=== PATIENT | female | born 1955 | race Caucasian/White ===

== ENCOUNTER 2017-11-05 19:45 | Inpatient (IN) | payer BC ==
[~2017-11-05] VITALS: Ht 160 cm; Wt 102.3 kg
[2017-11-05 20:43] LABS: HEMATOCRIT 37.7 % (36.0-46.0); HEMOGLOBIN 12.2 G/DL (11.9-15.5); MCH 29.8 PG (29.0-34.0); MCHC 32.4 G/DL (30.0-36.0); MCV 92.2 FL (83-99); PLATELET COUNT 265 K/uL (156-360); RBC DIS.WIDTH-SD 50.2 % (39-53); RED BLOOD COUNT 4.09 M/uL (3.80-5.20); WHITE BLOOD COUNT 10.4 K/uL (4.1-10.2)
[2017-11-05 20:45] LABS: APPEARANCE CLOUDY ((CLEAR)); BILIRUBIN NEGATIVE; BLOOD LARGE; COLOR BROWN ((YELLOW)); GLUCOSE (STRIP) 1000; KETONES NEGATIVE; LEUKOCYTES NEGATIVE; NITRITE NEGATIVE; PH, URINE 6.5 (5-8); PROTEIN (STRIP) 100; SPECIFIC GRAVITY 1.015 (1.000-1.030); UROBILINOGEN 0.2 MG/DL (0.2-1.0)
[2017-11-05 20:49] LABS: RED BLOOD CELLS TNTC /HPF (0-5); UCUL ADDED? YES
[2017-11-05 20:56] LABS: ALBUMIN 4.1 g/dL (3.2-4.8); CHLORIDE 103 mEq/L (99-109); POTASSIUM 4.6 mEq/L (3.7-5.4); SODIUM 140 mEq/L (136-147)
[2017-11-05 20:59] LABS: GLUCOSE 181 mg/dL (70-99); TOTAL PROTEIN 7.1 g/dL (6.4-8.3)
[2017-11-05 21:01] LABS: TOTAL BILIRUBIN 0.7 mg/dL (0.0-1.0)
[2017-11-05 21:02] LABS: ALKALINE PHOSPHATASE 92 IU/L (3-129); CREATININE 0.9 mg/dL (0.6-1.3); GFR ESTIMATE (CALCULATED) > 59 mL/min/
[2017-11-05 21:03] LABS: UREA NITROGEN (BUN) 13 mg/dL (9-23)
[2017-11-05 21:04] LABS: AST (GOT) 19 IU/L (2-34)
[2017-11-05 21:05] LABS: ALT (GPT) 19 IU/L (3-49)
[2017-11-05 22:55] LABS: LIPASE 10 U/L (1.0-51.0)
[2017-11-06] MEDS ORDERED: METOPROLOL SUCC25 MG PO (01:26)
[2017-11-06] MEDS ORDERED: ACTOS30 MG PO (01:26)
[2017-11-06] MEDS ORDERED: PERCOCET 7.51 TABLET PO (01:27)
[2017-11-06] MEDS ORDERED: CYMBALTA60 MG PO (01:28)
[2017-11-06] MEDS ORDERED: GABAPENTIN100 MG PO (01:28)
[2017-11-06] MEDS ORDERED: JARDIANCE25 MG PO (01:28)
[2017-11-06] MEDS ORDERED: CRESTOR10 MG PO (01:28)
[2017-11-06] MEDS ORDERED: MELOXICAM15 MG PO (01:28)
[2017-11-06] MEDS ORDERED: METFORMIN HCL1000 MG PO (01:28)
[2017-11-06] MEDS ORDERED: COZAAR25 MG PO (01:28)
[2017-11-06] MEDS ORDERED: [UNRECOGNIZED DRUG - CODE] PO (01:29)
[2017-11-06] MEDS ORDERED: ONGLYZA5 MG PO (01:29)
[2017-11-06] MEDS ORDERED: CYANOCOBALAM1000 MCG PO (01:29)
[2017-11-06] MEDS ORDERED: ADULT ASPIRIN R81 MG PO (01:29)
[2017-11-06] MEDS ORDERED: BONE RESTORE PO (01:30)
[2017-11-06] MEDS ORDERED: [UNRECOGNIZED DRUG - OTHER] PO (01:30)
[2017-11-06] MEDS ORDERED: MAGNESIUM OXID500 MG PO (01:30)
[2017-11-06] MEDS ORDERED: ANTIBIOTIC PO (01:32)
[2017-11-06 03:15] VITALS: BP 161/67
[2017-11-06 08:10] VITALS: BP 138/61
[2017-11-06 10:46] LABS: HEMATOCRIT 36.3 % (36.0-46.0); HEMOGLOBIN 11.2 G/DL (11.9-15.5); MCV 92.4 FL (83-99)
[2017-11-06 12:33] VITALS: BP 133/66
[2017-11-06 16:14] VITALS: BP 176/77
[2017-11-06 20:24] VITALS: BP 139/65
[2017-11-06 22:41] VITALS: BP 105/57
[2017-11-07] VITALS (13 sets, daily range): BP systolic 83–145; BP diastolic 49–89
[2017-11-07 05:36] LABS: HEMATOCRIT 33.9 % (36.0-46.0); HEMOGLOBIN 10.7 G/DL (11.9-15.5); MCH 29.3 PG (29.0-34.0); MCHC 31.6 G/DL (30.0-36.0); MCV 92.9 FL (83-99); NRBC (%) 0.2 /100 WBC (0-0); PLATELET COUNT 187 K/uL (156-360); RBC DIS.WIDTH-CV 15.3 % (11.8-14.6); RBC DIS.WIDTH-SD 52.4 % (39-53); RED BLOOD COUNT 3.65 M/uL (3.80-5.20); WHITE BLOOD COUNT 13.8 K/uL (4.1-10.2)
[2017-11-07 06:16] LABS: CREATININE 1.4 MG/DL (0.6-1.3)
[2017-11-07 16:58] LABS: BICARBONATE 17.7 mEq/L (22-26); CARBOXY HGB 1.8 % (0-5); METHEMOGLOBIN 1.4 % (0-1.5); PCO2 36 mm Hg (35-45); PO2 58 mm Hg (80-100)
[2017-11-07 16:59] LABS: COMMENTS - BLOOD GASES A+C+; MODE CPAP; SITE RR
[2017-11-07 18:50] LABS: ALBUMIN 2.8 G/DL (3.2-4.8); ALKALINE PHOSPHATASE 166 IU/L (3-129); ALT (GPT) 33 IU/L (3-49); AST (GOT) 71 IU/L (2-34); DIRECT BILIRUBIN 0.4 mg/dL (0.0-0.3); TOTAL PROTEIN 4.9 G/DL (6.4-8.3)
[2017-11-07 18:57] LABS: CHLORIDE 109 MEQ/L (99-109); CREATININE 1.6 MG/DL (0.6-1.3); GFR ESTIMATE (CALCULATED) 35 mL/min/; GLUCOSE 134 mg/dL (70-99); POTASSIUM 3.8 MEQ/L (3.7-5.4); SODIUM 138 MEQ/L (136-147)
[2017-11-07 19:10] LABS: UREA NITROGEN (BUN) 23 mg/dL (9-23)
[2017-11-08] VITALS (23 sets, daily range): BP systolic 76–151; BP diastolic 54–92
[2017-11-08 04:41] LABS: HEMATOCRIT 31.7 % (36.0-46.0); HEMOGLOBIN 9.9 G/DL (11.9-15.5); MCH 29.2 PG (29.0-34.0); MCHC 31.2 G/DL (30.0-36.0); MCV 93.5 FL (83-99); RBC DIS.WIDTH-CV 15.4 % (11.8-14.6); RBC DIS.WIDTH-SD 53.3 % (39-53); RED BLOOD COUNT 3.39 M/uL (3.80-5.20); WHITE BLOOD COUNT 13.5 K/uL (4.1-10.2)
[2017-11-08 04:43] LABS: INTER. NORMALIZED RATIO 1.2
[2017-11-08 04:46] LABS: PTT 28.1 SEC (25-37)
[2017-11-08 05:02] LABS: ALBUMIN 2.9 G/DL (3.2-4.8); CHLORIDE 111 MEQ/L (99-109); CREATININE 1.5 MG/DL (0.6-1.3); GFR ESTIMATE (CALCULATED) 37 mL/min/; GLUCOSE 148 mg/dL (70-99); SODIUM 139 MEQ/L (136-147); UREA NITROGEN (BUN) 24 mg/dL (9-23)
[2017-11-08 05:03] LABS: ALKALINE PHOSPHATASE 99 IU/L (3-129); ALT (GPT) 66 IU/L (3-49); AST (GOT) 118 IU/L (2-34); POTASSIUM 4.7 MEQ/L (3.7-5.4)
[2017-11-08 05:15] LABS: ABS NEUTROPHIL COUNT 12.2; ATYPICAL LYMPHOCYTE 0.9 %; BAND NEUTROPHILS 10.5 % (0-8.0); BURR CELLS 1+; EOSINOPHIL ABS CT 0; LYMPHOCYTES 6.2 % (15.0-45.0); MONOCYTES 2.6 % (0-9.0); OVALOCYTES 1+; PLAT.SUFFICIENCY DECREASED; PLATELET COUNT 127 K/uL (156-360); SEG.NEUTROPHILS 79.8 % (46.0-76.0)
[2017-11-09] VITALS (24 sets, daily range): BP systolic 139–172; BP diastolic 75–105
[2017-11-09 15:12] LABS: CHLORIDE 105 MEQ/L (99-109); GLUCOSE 127 mg/dL (70-99); POTASSIUM 4.2 MEQ/L (3.7-5.4); SODIUM 135 MEQ/L (136-147); UREA NITROGEN (BUN) 17 mg/dL (9-23)
[2017-11-09 15:16] LABS: GFR ESTIMATE (CALCULATED) > 59 mL/min/
[2017-11-10] VITALS (20 sets, daily range): BP systolic 115–178; BP diastolic 62–127
[2017-11-10 06:06] LABS: CHLORIDE 105 MEQ/L (99-109); CREATININE 0.6 MG/DL (0.6-1.3); GFR ESTIMATE (CALCULATED) > 59 mL/min/; POTASSIUM 4.3 MEQ/L (3.7-5.4); SODIUM 140 MEQ/L (136-147); UREA NITROGEN (BUN) 12 mg/dL (9-23)
[2017-11-10 06:07] LABS: GLUCOSE 91 mg/dL (70-99)
[2017-11-10 06:30] LABS: BASOPHIL (%) 0.4 % (0-1); BASOPHIL COUNT 0.1 K/uL (0-0.1); EOSINOPHIL (%) 2.2 % (0-5); EOSINOPHIL COUNT 0.3 K/uL (0-0.3); HEMATOCRIT 31.3 % (36.0-46.0); HEMOGLOBIN 10.2 G/DL (11.9-15.5); IMMATURE GRANULOCYTE (%) 1.8 % (0.0-0.7); LYMPHOCYTE (%) 9.8 % (15-42); LYMPHOCYTE COUNT 1.1 K/uL (1.0-2.8); MCH 29.1 PG (29.0-34.0); MCHC 32.6 G/DL (30.0-36.0); MONOCYTE (%) 8.8 % (3-12); NEUTROPHIL COUNT 8.7 K/uL (1.8-6.4); RBC DIS.WIDTH-CV 15.3 % (11.8-14.6); RBC DIS.WIDTH-SD 50.3 % (39-53); RED BLOOD COUNT 3.51 M/uL (3.80-5.20); WHITE BLOOD COUNT 11.3 K/uL (4.1-10.2)
[2017-11-10 06:31] LABS: MCV 89.2 FL (83-99); PLATELET COUNT 175 K/uL (156-360)
[2017-11-11 03:35] VITALS: BP 152/74
[2017-11-11 07:32] VITALS: BP 144/70
[2017-11-11 12:37] VITALS: BP 119/59
[2017-11-11 16:58] VITALS: BP 152/74
[2017-11-11 23:48] VITALS: BP 150/68
[2017-11-12 07:01] VITALS: BP 154/77
[2017-11-12] MEDS ORDERED: CIPROFLOXACIN500 M1 PO (10:27)
== END 2017-11-12 11:45 | disposition home or self-care (01) | DRG 871 ==
LOC: EME 19:45 → EDOF 11-06 01:28 → 2EAST 11-06 01:28 → ENRESERV 11-06 01:32 → 2EAST 11-06 03:19 → ENRESERV 11-06 18:48 → 4WEST 11-06 18:59 → 4EAST 11-06 18:59 → ENRESERV 11-06 19:21 → 4EAST 11-06 19:47 → ENRESERV 11-07 16:46 → 4WEST 11-07 17:01 → ENRESERV 11-10 13:47 → CANRESERV 11-10 14:27 → ENRESERV 11-10 14:38 → 2EASTP 11-10 15:38
PROVIDERS: Hospitalist; Obstetrics & Gynecology; Physician Assistant Medical; Surgery
PROC: 5A09357 Assistance with Respiratory Ventilation, Less than 24 Consecutive Hours, Continuous Positive Airway Pressure (ICD-10-PCS; principal; 2017-11-06)
DX: A41.59 Other Gram-negative sepsis (principal); R65.21 Severe sepsis with septic shock; N30.01 Acute cystitis with hematuria; E87.2 Acidosis; J98.11 Atelectasis; J90 Pleural effusion, not elsewhere classified; N10 Acute pyelonephritis; N17.9 Acute kidney failure, unspecified; M87.9 Osteonecrosis, unspecified; J81.1 Chronic pulmonary edema; B96.1 Klebsiella pneumoniae [K. pneumoniae] as the cause of diseases classified elsewhere; E11.40 Type 2 diabetes mellitus with diabetic neuropathy, unspecified; E66.01 Morbid (severe) obesity due to excess calories; E78.5 Hyperlipidemia, unspecified; E86.9 Volume depletion, unspecified; G47.33 Obstructive sleep apnea (adult) (pediatric); I10 Essential (primary) hypertension; K76.0 Fatty (change of) liver, not elsewhere classified; M19.90 Unspecified osteoarthritis, unspecified site; D25.9 Leiomyoma of uterus, unspecified; G89.4 Chronic pain syndrome; R09.02 Hypoxemia; N28.1 Cyst of kidney, acquired; N63.10 Unspecified lump in the right breast, unspecified quadrant; R61 Generalized hyperhidrosis; I65.29 Occlusion and stenosis of unspecified carotid artery; Z87.891 Personal history of nicotine dependence; Z68.39 Body mass index [BMI] 39.0-39.9, adult; Z79.82 Long term (current) use of aspirin; Z87.440 Personal history of urinary (tract) infections; Z79.84 Long term (current) use of oral hypoglycemic drugs; Z82.3 Family history of stroke; Z83.3 Family history of diabetes mellitus; Z80.9 Family history of malignant neoplasm, unspecified
CPT/HCPCS: 36600; 71045; 71250; 74177; 76770; 80048; 80053; 80076; 81003; 82565; 82803; 82948; 83605; 83690; 84520; 85014; 85018; 85025; 85025 91; 85027; 85610; 85730; 87040; 87077; 87086; 87186; 87641; 87801; 88108; 88368 90; 88369 90; 94002; 94640; 94640 76; 94660; 94760; 94799; 99202; 99281; 99285; J0692; J0744; J1170; J1644; J1815; J1940; J2405; J7030; P9047